=== PATIENT | male | born 1950 | race Caucasian/White ===

== ENCOUNTER → 2017-12-02 | Outpatient (CLI) | payer MEDICARE ==
--- NOTE | 2017-12-02 08:39 | US ---
EXAMINATION TYPE: US duplex aorta DATE OF EXAM: 12/02/2017 COMPARISON: NONE CLINICAL HISTORY: Z13.6 screening for abdominal aortic aneurysm. Screening for AAA, pt has no complai nts at this time EXAM MEASUREMENTS: Abdominal Aorta: Proximal: 2.6 x 2.8 cm Mid: 2.1 x 1.9 cm Distal: 1.9 x 1.9 cm Bifurcation: ENMA: 1.0 x 1.1 cm ASIA: 1.0 x 1.0 cm Proximal portion upper limits of normal without evidence of AAA IMPRESSION: No sonographic evidence of abdominal aortic aneurysm. The proximal abdominal aorta is upp er limits of normal measuring up to 2.8 cm (normal limits up to 3.0 cm).
== END ==
LOC: RADUSWWP 08:12
PROVIDERS: ATTEND Internal Medicine
DX: Z13.6 Encounter for screening for cardiovascular disorders (principal)
CPT/HCPCS: 93979

== ENCOUNTER → 2022-11-12 | Outpatient (CLI) | payer MEDICARE ==
--- NOTE | 2022-11-12 08:44 | CTL ---
EXAMINATION TYPE: CT Low Dose Lung DATE OF EXAM ORDERED: 11/12/2022 HISTORY: Personal tobacco use. Lung cancer screening CT DLP: 114.[address] CTDI: 3.81 mGy Automated exposure control for dose reduction was used. SCREENING VISIT: Initial COMPARISON: None TECHNIQUE: Low dose computed tomography scan was performed through the chest at 1 mm thick sections a nd reconstructed images in the coronal plane at [address] DIAGNOSTIC QUALITY: Satisfactory FINDINGS: LUNG NODULES: None. LUNGS: COPD: Severity: None Fibrosis: Severity: None Lymph nodes: None Other findings: None RIGHT PLEURAL SPACE: Effusion: None Calcification: None Thickening: None Pneumothorax: None LEFT PLEURAL SPACE: Effusion: None Calcification: None Thickening: None Pneumothorax: None HEART: Heart Size: Normal Coronary calcification: Moderate Pericardial effusion: None OTHER FINDINGS: Upper abdomen: Normal Bony thorax: Normal Supraclavicular region: Normal Other: Ascending thoracic aorta at the level the main pulmonary artery measures 4.1 cm. The main pul monary artery at the bifurcation measures 2.9 cm. IMPRESSION: 1. No suspicious changes to suggest primary or metastatic neoplasm. 2. Ascending thoracic aortic aneurysm. 3. Coronary artery calcification FOLLOW UP CT CHEST RECOMMENDATION: Low-dose CT chest [address] LUNG RAD: Lung-Rad 1 Negative
== END | disposition home or self-care (01) ==
LOC: RADCTMAIN 06:43
PROVIDERS: ATTEND Family Medicine
DX: Z12.2 Encounter for screening for malignant neoplasm of respiratory organs (principal); F17.210 Nicotine dependence, cigarettes, uncomplicated; I71.21 Aneurysm of the ascending aorta, without rupture; I25.10 Atherosclerotic heart disease of native coronary artery without angina pectoris
CPT/HCPCS: 71271

== ENCOUNTER 2023-02-21 02:13 | Emergency (ER) | payer MEDICARE ==
[2023-02-21 02:23] VITALS: RESP 18; TEMP 98.1
[2023-02-21] MEDS ORDERED: KETOROLAC 15 MG/ML 1 ML VIAL IVP STA (02:36)
[2023-02-21] MEDS ORDERED: SODIUM CHLORIDE 0.9% 1,000 ML IV STA (02:36)
--- NOTE | 2023-02-21 02:38 | ED ---
General Adult HPI - General Chief complaint: Abdominal Pain Stated complaint: ABD Pain Time Seen by Provider: 02/21/23 02:30 Source: patient Mode of arrival: ambulatory Limitations: no limitations - History of Present Illness Initial comments: Dictation was produced using [employer] dictation software. please excuse any grammatical, word or spelling errors. Chief Complaint: 72-year-old male with no history of nephrolithiasis presents to the ER for left-sided flank pain History of Present Illness: Since 72-year-old male he has known kidney stone history. Patient was supposed to have operative intervention to treat kidney stone however this surgery was pushed back due to need for cardiac clearance. The last 2-3 hours she's been having left-sided flank pain. States that he has pain to the left flank. States that severe. He has been having on and off kidney stone pain for the last several years. The ROS documented in this emergency department record has been reviewed and confirmed by me. Those systems with pertinent positive or negative responses have been documented in the HPI. All other systems are other negative and/or noncontributory. - Related Data Allergies Allergy/AdvReac Type Severity Reaction Status Date / Time No Known Allergies Allergy Verified 02/21/23 02:19 Review of Systems ROS Statement: Those systems with pertinent positive or pertinent negative responses have been documented in the HPI. ROS Other: All systems not noted in ROS Statement are negative. Past Medical History Additional Past Medical History / Comment(s): kidney stone. History of Any Multi-Drug Resistant Organisms: None Reported Additional Past Surgical History / Comment(s): carpal tunnel, Past Psychological History: No Psychological Hx Reported Smoking Status: Former smoker Past Alcohol Use History: None Reported Past Drug Use History: None Reported General Exam - General Exam Comments Initial Comments: PHYSICAL EXAM: General Impression: Alert and oriented x3, not in acute distress HEENT: Normocephalic atraumatic, extra-ocular movements intact, pupils equal and reactive to light bilaterally, mucous membranes moist. Cardiovascular: Heart regular rate and rhythm Chest: Able to complete full sentences, no retractions, no tachypnea Abdomen: abdomen soft, non-tender, non-distended, no organomegaly Musculoskeletal: Pulses present and equal in all extremities, no peripheral edema Motor: no focal deficits noted Neurological: CN II-XII grossly intact, no focal motor or sensory deficits noted Skin: Intact with no visualized rashes Psych: Normal affect and mood Limitations: no limitations Course Vital Signs 02/21/23 02/21/23 02:19 03:23 Temperature 98.1 F Pulse Rate 71 59 L Respiratory 18 18 Rate Blood Pressure 150/96 127/81 O2 Sat by Pulse 98 97 Oximetry Medical Decision Making - Medical Decision Making Was pt. sent in by a medical professional or institution (, PA, SOFTWARE INTERN, urgent care, hospital, or care home...) When possible be specific @ -No Did you speak to anyone other than the patient for history (EMS, parent, family, police, friend...)? What history was obtained from this source @ -No Did you review nursing and triage notes (agree or disagree)? Why? @ -I reviewed and agree with nursing and triage notes Were old charts reviewed (outside hosp., previous admission, EMS record, old EKG, old radiological studies, urgent care reports/EKG's, care home records)? Report findings @ -No old charts were reviewed Differential Diagnosis (chest pain, altered mental status, abdominal pain women, abdominal pain men, vaginal bleeding, musculoskeletal, weakness, fever, dyspnea, syncope, headache, dizziness, GI bleed, back pain, seizure, CVA, palpatations, mental health)? @ -Differential Abdominal Pain Men: Appendicitis, cholecystitis, diverticulosis, ischemic bowel, pancreatitis, hepatitis, UTI, gastroenteritis, AAA, incarcerated hernia, bowel obstruction, constipation, inflammatory bowel, hepatitis, peptic ulcer disease, splenic infarction, perforated viscus, testicular torsion, this is not meant to be an all-inclusive list EKG interpreted by me (3pts min.). @ -None done X-rays interpreted by me (1pt min.). @ -None done CT interpreted by me (1pt min.). @ -None done U/S interpreted by me (1pt. min.). @ -Left hydronephrosis What testing was considered but not performed or refused? (CT, X-rays, U/S, labs)? Why? @ -None What meds were considered but not given or refused? Why? @ -None Did you discuss the management of the patient with other professionals (professionals i.e. , PATRICIA, SOFTWARE INTERN, lab, RT, psych nurse, social economist, preventative maintenance technician, teacher, chief analytics officer, casework specialist)? Give summary @ -No Was smoking cessation discussed for >3mins.? @ -No Was critical care preformed (if so, how long)? @ -No Were there social determinants of health that impacted care today? How? (Homelessness, low income, unemployed, alcoholism, drug addiction, transportation, low edu. Level, literacy, decrease access to med. care, retirement, rehab)? @ -No Was there de-escalation of care discussed even if they declined (Discuss DNR or withdrawal of care, Hospice)? DNR status @ -No What co-morbidities impacted this encounter? (DM, HTN, Smoking, COPD, CAD, Cancer, CVA, ARF, Chemo, Hep., AIDS, mental health diagnosis, sleep apnea, morbi d obesity)? @ -None Was patient admitted / discharged? Hospital course, mention meds given and route, prescriptions, significant lab abnormalities, going to OR and other pertinent info. @ -72 y Old male presents with flank pain. Symptoms are classic for nephrolithiasis. Vital signs upon arrival are within acceptable limits. Laboratory evaluation within acceptable limits. Patient given analgesics and IV fluids. Reevaluated at the bedside at 5:08 AM with complete resolution of symptoms. Clinically patient's kidney stone had gone back to the kidney. Previous chart review shows that patient has a large kidney stone in the left urinary system. Patient be discharged advised follow up with urologist. Undiagnosed new problem with uncertain prognosis? @ -No Drug Therapy requiring intensive monitoring for toxicity (Heparin, Nitro, Insulin, Cardizem)? @ -No Were any procedures done? @ -No Diagnosis/symptom? Acute, or Chronic, or Acute on Chronic? Uncomplicated (without systemic symptoms) or Complicated (systemic symptoms)? @ -1. Symptomatic kidney stone Side effects of treatment? @ -No Exacerbation, Progression, or Severe Exacerbation? @ -No Poses a threat to life or bodily function? How? (Chest pain, USA, NC, pneumonia, PE, COPD, DKA, ARF, appy, cholecystitis, CVA, Diverticulitis, Homicidal, Suicidal, threat to staff... and all critical care pts) @ -No - Lab Data Result diagrams: 02/21/23 02:55 02/21/23 02:55 Lab Results 02/21/23 02/21/23 Range/Units 02:55 02:55 WBC 7.6 (3.8-10.6) k/uL RBC 5.48 (4.30-5.90) m/uL Hgb 16.4 (13.0-17.5) gm/dL Hct 49.5 (39.0-53.0) % MCV 90.3 (80.0-100.0) fL MCH 29.8 (25.0-35.0) pg MCHC 33.0 (31.0-37.0) g/dL RDW 13.1 (11.5-15.5) % Plt Count 184 (150-450) k/uL MPV 8.6 Neutrophils % 75 % Lymphocytes % 16 % Monocytes % 5 % Eosinophils % 2 % Basophils % 0 % Neutrophils # 5.7 (1.3-7.7) k/uL Lymphocytes # 1.2 (1.0-4.8) k/uL Monocytes # 0.4 (0-1.0) k/uL Eosinophils # 0.2 (0-0.7) k/uL Basophils # 0.0 (0-0.2) k/uL Sodium 138 (137-145) mmol/L Potassium 4.1 (3.5-5.1) mmol/L Chloride 107 (98-107) mmol/L Carbon Dioxide 21 L (22-30) mmol/L Anion Gap 10 mmol/L BUN 30 H (9-20) mg/dL Creatinine 1.14 (0.66-1.25) mg/dL Est GFR (CKD-EPI)AfAm 75 (>60 ml/min/1.73 sqM) Est GFR (CKD-EPI)NonAf 65 (>60 ml/min/1.73 sqM) Glucose 103 H (74-99) mg/dL Calcium 9.3 (8.4-10.2) mg/dL Disposition Clinical Impression: Kidney stone Disposition: HOME SELF-CARE Condition: Fair Instructions (If sedation given, give patient instructions): Kidney Stones (ED) Is patient prescribed a controlled substance at d/c from ED?: No Referrals: Ermias Barton MD [Primary Care Provider] - 1-2 days Time of Disposition: 05:09
[2023-02-21 03:14] LABS: Basophils % (A) 0 %; Eosinophils # (A) 0.2 k/uL (0-0.7); Eosinophils % (A) 2 %; HCT 49.5 % (39.0-53.0); HGB 16.4 gm/dL (13.0-17.5); Lymphocytes # (A) 1.2 k/uL (1.0-4.8); Lymphocytes % (A) 16 %; MCH 29.8 pg (25.0-35.0); MCV 90.3 fL (80.0-100.0); Mean Platelet Volume 8.6; Monocytes # (A) 0.4 k/uL (0-1.0); Monocytes % (A) 5 %; Neutrophils # (A) 5.7 k/uL (1.3-7.7); Neutrophils % (A) 75 %; Platelet Count 184 k/uL (150-450); RBC 5.48 m/uL (4.30-5.90); RDW 13.1 % (11.5-15.5); WBC 7.6 k/uL (3.8-10.6)
[2023-02-21 03:23] LABS: African American GFR (CKD) 75 (>60 ml/min/1.73 sqM); Anion Gap 10 mmol/L; Blood Urea Nitrogen 30 mg/dL (9-20); Calcium 9.3 mg/dL (8.4-10.2); Carbon Dioxide 21 mmol/L (22-30); Chloride 107 mmol/L (98-107); Glucose 103 mg/dL (74-99); Non-African American GFR(CKD) 65 (>60 ml/min/1.73 sqM); Potassium 4.1 mmol/L (3.5-5.1); Sodium 138 mmol/L (137-145)
[2023-02-21 04:30] VITALS: BP 127/81; PULSE 59
--- NOTE | 2023-02-21 06:13 | US ---
EXAM: US Retroperitoneal Complete, Renal CLINICAL HISTORY: flank pain TECHNIQUE: Real-time complete ultrasound of the retroperitoneum with image documentation. COMPARISON: CT urogram dated 12/10/2022. FINDINGS: Right kidney: Right kidney measures 10.7 x 5.2 x 4.5 cm. No stones. No hydronephrosis. Left kidney: Left kidney measures 10.4 x 5.7 x 6 cm. Mild/moderate left-sided hydronephrosis with a 1.2 cm stone noted at the left UPJ, as seen on prior study. 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 Both ureteral jets were not seen. IMPRESSION: 1. Mild/moderate left-sided hydronephrosis with a 1.2 cm stone noted at the left UPJ, as seen on prior study. 2. 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
== END 2023-02-21 05:33 | disposition home or self-care (01) ==
LOC: EC 02:13
DX: N13.2 Hydronephrosis with renal and ureteral calculous obstruction (principal); Z87.891 Personal history of nicotine dependence
CPT/HCPCS: 80048; 85025; 76770; 99284; 96374; 96361 ×2; J1885; 36415

== ENCOUNTER → 2023-03-14 | Outpatient (CLI) | payer MEDICARE ==
[2023-03-14 17:08] LABS: Basophils # (A) 0.07 X 10*3/uL (0.00-0.10); Basophils % (A) 1.5 %; Eosinophils # (A) 0.14 X 10*3/uL (0.04-0.35); Eosinophils % (A) 3.1 %; HCT 49.2 % (39.6-50.0); HGB 16.3 d/dL (13.0-17.0); Lymphocytes # (A) 1.38 X 10*3/uL (0.90-5.00); Lymphocytes % (A) 30.5 %; MCH 30.3 pg (27.0-32.0); MCHC 33.1 d/dL (32.0-37.0); MCV 91.4 FL (80.0-97.0); Monocytes # (A) 0.49 X 10*3/uL (0.20-1.00); Monocytes % (A) 10.8 %; NRBC Per 100 WBC 0 X 10*3/uL (0.00-0.01); Neutrophils # (A) 2.44 X 10*3/uL (1.80-7.70); Neutrophils % (A) 53.9 %; Platelet Count 208 X 10*3/uL (140-440); RBC 5.38 X 10*6/uL (4.40-5.60); RDW 12.9 % (11.5-14.5); WBC 4.53 X 10*3/uL (4.50-10.00)
[2023-03-14 17:10] LABS: Anion Gap 9.5 mmol/L (4.00-12.00); Blood Urea Nitrogen 29.6 mg/dL (9.0-27.0); Carbon Dioxide 24.5 mmol/L (21.6-31.8); Potassium 4.3 mmol/L (3.5-5.5)
== END | disposition home or self-care (01) ==
LOC: LABWHC1 08:23
PROVIDERS: ATTEND Internal Medicine Interventional Cardiology
DX: Z01.812 Encounter for preprocedural laboratory examination (principal); I25.10 Atherosclerotic heart disease of native coronary artery without angina pectoris
CPT/HCPCS: 36415; 80051; 82565; 84520; 85025

== ENCOUNTER 2023-04-04 07:38 | Day surgery (SDC) | payer MEDICARE ==
[2023-03-29 12:22] VITALS: BMI 27.3
[~2023-04-04 07:38] MED LIST: ALPRAZolam 0.25 MG TAB PO PRN; ALPRAZolam 0.5 MG TAB PO PRN; ASPIRIN 325 MG TAB PO ONE; ATORVASTATIN 80 MG TAB PO ONE; HEPARIN SODIUM,PORCINE (1 ML) 2,500 UNIT in SODIUM CHLORIDE 0.9% 250 ML IRRIGATION PRN; HEPARIN SODIUM,PORCINE 10,000 UNIT in SODIUM CHLORIDE 0.9% 1,000 ML IRRIGATION PRN; NITROGLYCERIN SL TABS 0.4 MG TAB SUBLINGUAL PRN; SODIUM CHLORIDE 0.9% 1,000 ML in EMPTY BAG 1 BAG IV SCH
[2023-04-04 08:15] VITALS: RESP 18; TEMP 97.9
[2023-04-04] MEDS ORDERED: HEPARIN SODIUM 1,000 UN/ML (10ML VL) ONE (08:52)
[2023-04-04] MEDS ORDERED: LIDOCAINE 1% INJ 10MG/ML (20 ML MDV) ONE (08:52)
[2023-04-04] MEDS ORDERED: VERAPAMIL 2.5 MG/ML 2 ML AMP ONE (08:52)
[2023-04-04] MEDS ORDERED: MIDAZOLAM 2 MG/2 ML VIAL IVP ONE (09:14)
[2023-04-04] MEDS ORDERED: LIDOCAINE 1% INJ 10MG/ML (5 ML VIAL-PF) SQ ONE (09:14)
[2023-04-04] MEDS ORDERED: VERAPAMIL SYRINGE (5 MG/10 ML) INTRAARTER ONE (09:15)
[2023-04-04] MEDS ORDERED: HEPARIN SODIUM 1,000 UN/ML (10ML VL) IV ONE (09:18)
[2023-04-04] MEDS ORDERED: IOPAMIDOL-370 100ML BTL INJ ONE (09:28)
[2023-04-04] MEDS ORDERED: RX INFO: IV CONTRAST WAS GIVEN 1 EACH MISC MISCELLANE PRN (09:30)
[2023-04-04] MEDS ORDERED: SODIUM CHLORIDE 0.9% 1,000 ML IV SCH (09:30)
--- NOTE | 2023-04-04 09:34 | P.PCN ---
Date of Procedure: 04/04/23 Operative Findings: CARDIAC CATHETERIZATION PERFORMING PHYSICIAN: Kunal Romano MD, RPVI PROCEDURE PERFORMED: 1. Selective right and left coronary angiogram 2. Left heart catheterization 3. Ultrasound-guided access of the right radial artery INDICATION: Shortness of breath this 72-year-old gentleman who underwent coronary CT showed critical disease involving the proximal to mid LAD COMPLICATION: None APPROACH: Right radial artery LEVEL OF SEDATION: Moderate with a sedation length of 15 minutes PROCEDURE DESCRIPTION: After obtaining an informed consent, the patient was brought to cardiac slab worker. Local anesthesia was performed using lidocaine subcutaneously. The right radial artery was cannulated using Seldinger technique, the guidewire passed easily, following that we advanced a 5-German sheath dilator assembly, the wire and dilator were removed and sheath was flushed. Following that, 2 mg of verapamil along with 5000 unit heparin were given. Selective right and left coronary angiogram using a 6-German JR4 and JL 3.5 catheters. Following that we did left heart catheterization using 6-German pigtail catheter. The procedure was completed there was no complication. SELECTIVE CORONARY ANGIOGRAM: The right coronary artery: Large-caliber vessel and a dominant vessel. The RCA has mild disease only. Distally bifurcates into PDA and PLV branches both appear to have mild disease only. Left main: Large caliber vessel. Calcified vessel. It has mild disease only. The left circumflex: Large caliber vessel nondominant vessel. The ostial LCx has mild disease only. It gives rises into an OM1 and OM 2 and both appeared to have mild disease only. The left anterior descending artery: Large-caliber vessel. The proximal to mid LAD by the bifurcation of a large diagonal branch has a lesion appeared to be in the range of 50% and the lesion is tubular. The heart is no high-grade stenosis identified. The distal LAD appears to be angiographically normal. The large diagonal branch appeared to have mild disease only HEMODYNAMICS: The LVEDP was 12 mmHg was no significant gradient across aortic valve CONCLUSION: 1. Calcified right and left coronary system 2. Intermediate disease involving the proximal to mid LAD with a tubular lesion by the bifurcation of the large diagonal branch POSTPROCEDURE MANAGEMENT: Consider medical treatment at this point Consider FFR of the LAD if the patient remains symptomatic in spite of maximize medical treatment
[2023-04-04 14:39] VITALS: BP 117/68; PULSE 58
== END 2023-04-04 13:35 | disposition home or self-care (01) ==
LOC: CATHCVL 07:38
PROVIDERS: ATTEND Internal Medicine Interventional Cardiology
DX: I25.10 Atherosclerotic heart disease of native coronary artery without angina pectoris (principal); E78.5 Hyperlipidemia, unspecified; F17.210 Nicotine dependence, cigarettes, uncomplicated; F17.200 Nicotine dependence, unspecified, uncomplicated
CPT/HCPCS: 93458; 76937; C1769; C1894; J2250; J2001; J1644; Q9967

== ENCOUNTER 2023-05-08 06:16 | Day surgery (SDC) | payer MEDICARE ==
[2023-05-02 09:11] VITALS: BMI 28.6
--- NOTE | 2023-05-07 11:32 | P.GSHP ---
History of Present Illness H&P Date: 05/07/23 72 yo male with a history of stones He has a 16 mm left upj stone as well as a larger stone in the llp calyx. He comes for a left pcnl Alternatives have been discussed. - Constitutional Constitutional: Denies chills, Denies fever - EENT Eyes: denies blurred vision, denies pain Ears, nose, mouth and throat: Denies headache, Denies sore throat - Cardiovascular Cardiovascular: Denies chest pain, Denies shortness of breath - Respiratory Respiratory: Denies cough, Denies 7 - Gastrointestinal Gastrointestinal: Denies abdominal pain, Denies diarrhea, Denies nausea, Denies vomiting - Genitourinary (Female) Genitourinary: Denies dysuria, Denies hematuria - Genitourinary (Male) Genitourinary: Denies dysuria, Denies hematuria - Musculoskeletal Musculoskeletal: Denies myalgias - Integumentary Integumentary: Denies pruritus, Denies rash - Neurological Neurological: Denies numbness, Denies weakness - Psychiatric Psychiatric: Denies anxiety, Denies depression - Endocrine Endocrine: Denies fatigue, Denies weight change Past Medical History Past Medical History: Coronary Artery Disease (CAD), COPD, Hyperlipidemia, Osteoarthritis (OA) Additional Past Medical History / Comment(s): kidney stone History of Any Multi-Drug Resistant Organisms: None Reported Past Surgical History: Heart Catheterization, Orthopedic Surgery Additional Past Surgical History / Comment(s): carpal tunnel, surgery for nerve in elbow Past Anesthesia/Blood Transfusion Reactions: No Reported Reaction Past Psychological History: No Psychological Hx Reported Smoking Status: Former smoker Past Alcohol Use History: None Reported Past Drug Use History: None Reported - Past Family History Mother Family Medical History: No Reported History Medications and Allergies Home Medications Medication Instructions Recorded Confirmed Type Naproxen Sodium [Aleve] 220 mg PO DIRECTED PRN 03/29/23 05/02/23 History Aspirin 81 mg PO DAILY 04/04/23 05/02/23 History Atorvastatin [Lipitor] 40 mg PO HS 05/02/23 05/02/23 History Allergies Allergy/AdvReac Type Severity Reaction Status Date / Time No Known Allergies Allergy Verified 05/02/23 08:54 Surgical - Exam - General well developed, well nourished, no distress - Eyes normal ocular movement, no icteric - ENT no hearing loss, no congestion - Neck no masses, trachea midline - Respiratory normal respiratory effort, clear to auscultation - Abdomen Abdomen: soft, non tender, no guarding, no rigid, no rebound - Integumentary no rash, no abnormal pigmentation - Neurologic no disoriented, no combative - Psychiatric oriented to time, oriented to person, oriented to place, speech is normal, memory intact Results - Imaging CT scan - abdomen: report reviewed, image reviewed CT scan - pelvis: report reviewed, image reviewed Assessment and Plan Assessment: Impression: Left renal stone, large Plan: left pcnl
[2023-05-08] MEDS ORDERED: HYDROmorphone 0.5 MG/0.5 ML SYRINGE IVP PRN (07:00)
[2023-05-08] MEDS: LACTATED RINGERS 1,000 ML IV SCH ×2 (07:06→07:48)
[2023-05-08] MEDS ORDERED: LIDOCAINE 1% (10MG/ML) FOR IV START SQ ONE (07:06)
[2023-05-08] MEDS: ONDANSETRON 4 MG/2 ML VIAL IVP ONE ×2 (07:09→10:43)
[2023-05-08] MEDS: DEXAMETHASONE SOD PHOSPHATE 4 MG/ML 1 ML VIAL IV ONE ×2 (07:09→10:43)
[2023-05-08] MEDS ORDERED: SUCCINYLCHOLINE CHLORIDE 200 MG/10 ML VIAL IV ONE (07:45)
[2023-05-08] MEDS ORDERED: PROPOFOL 10 MG/ML 20 ML VIAL IV ONE (07:45)
[2023-05-08] MEDS ORDERED: GLYCOPYRROLATE 0.2 MG/ML 2 ML VIAL ONE (07:45)
[2023-05-08] MEDS ORDERED: MIDAZOLAM 2 MG/2 ML VIAL ONE (07:45)
[2023-05-08] MEDS ORDERED: NEOSTIGMINE 1 MG/ML 10 ML VIAL ONE (07:45)
[2023-05-08] MEDS ORDERED: fentaNYL (PF) 50 MCG/ML 2 ML AMP ONE (07:45)
[2023-05-08] MEDS ORDERED: LIDOCAINE 1% INJ 10MG/ML (20 ML MDV) ONE (07:45)
[2023-05-08] MEDS ORDERED: ROCURONIUM 10 MG/ML (5 ML VIAL) IV ONE (07:45)
[2023-05-08] MEDS ORDERED: IOPAMIDOL-370 100ML BTL MISCELLANE ONE (08:38)
[2023-05-08] MEDS ORDERED: LACTATED RINGERS 1,000 ML IV ONE (09:00)
[2023-05-08] MEDS ORDERED: MAG HYDROX/AL HYDROX/SIMETH 30 ML CUP PO PRN (09:22)
[2023-05-08] MEDS ORDERED: ACETAMINOPHEN TAB 325 MG TAB PO PRN (09:22)
[2023-05-08] MEDS ORDERED: ONDANSETRON 4 MG/2 ML VIAL IVP PRN (09:22)
[2023-05-08] MEDS ORDERED: NALOXONE 0.4 MG/ML 1 ML VIAL IV PRN (09:24)
[2023-05-08] MEDS ORDERED: HYDROmorphone PCA 10 MG/50 ML BAG IV PRN (09:24)
--- NOTE | 2023-05-08 09:29 | P.OP ---
Date of Procedure: 05/08/23 Preoperative Diagnosis: Left renal calculi large Postoperative Diagnosis: Same Procedure(s) Performed: Cystoscopy, placement of occluding balloon catheter left, percutaneous nephrostomy (Dr. Enciso), percutaneous nephrostolithotomy at ultrasound, placement of 10 J nephrostomy left Anesthesia: TALYAA Surgeon: Howard Enciso Estimated Blood Loss (ml): 50 Pathology: other (Stone) Condition: stable Disposition: PACU Indications for Procedure: The patient is 72. He has a 16 mm UPJ and another 1 cm of stone on the left lower pole calyx. He comes for left percutaneous nephrostolithotomy. Risks and complications have been discussed Description of Procedure: Patient brought to the operating suite. Given a general anesthetic. He's placed in a frog position on the transport gurney. Cystoscopy with a Foroblique lens and 21-Hungarian sheath identifies a normal urethra. The prostatic urethra was mildly obstructed. The left ureteral orifice is identified and intubated with a 5-Hungarian occluding balloon catheter. The cystoscope was removed. His secured to a 16-Hungarian Gamble. The patient is placed in prone position with care to airways and extremities. Sterile prep is administered. I performed left percutaneous access and this will be dictated separately. I then dilate the access and place a 30-Hungarian sheath into the middle pole calyx that I access. The stones have dropped into the UPJ. I then pass a semirigid scope into the collecting system. The 3 stones that were in the left lower pole calyx are identified grasp and removed through the working sheath. The left UPJ stone is identified and I have to use ultrasound to break it up into smaller pieces to be removed. The larger fragments are grasped. I then pass the flexible nephroscope throughout the system and see no remaining stones. There are no remaining stones on the fluoroscopic. A 10-Hungarian J nephrostomy tube was placed in the left renal pelvis over the working wire. Secured to the skin. The patient is awake and returned recovery room good condition. Blood loss was approximately 50 mL.
--- NOTE | 2023-05-08 09:32 | P.PCN ---
Date of Procedure: 05/08/23 Preoperative Diagnosis: Left renal stones Postoperative Diagnosis: Same Procedure(s) Performed: Percutaneous access Anesthesia: GETA Surgeon: Howard Enciso Description of Procedure: The patient has had a previous ureteral catheter placed he is now in prone position with a sterile prep and drape. Fluid and air are injected to the left ureteral catheter to outline the collecting system. The stones have dropped into the UPJ. With a Chiba needle a middle pole calyx is identified and intubated. Water and air come out of this left middle pole calyx. I then pass a cope wire through the Chiba needle down into the UPJ. I removed the Chiba needle and over the wire is passed dilating catheters. I then pass through the 3-Chinese dilating catheter and 035 Lubriglide wire down into the proximal ureter. I advance a kumpf cath over the 035 wire into the proximal ureter. I then remove the Lubriglide wire and pass an 035 Super Stiff wire into the ureter. I then pass the 8/10 dilating, exchange catheters in the left proximal ureter. I removed the inner catheter and prepped then pass another 035 wire down the ureter. Impression successful left renal access for percutaneous nephrostolithotomy
--- NOTE | 2023-05-08 09:39 | FL ---
EXAMINATION TYPE: FL Perc Nephrostomy New Access DATE OF EXAM: 05/08/2023 COMPARISON: NONE HISTORY: Fluoroscopy time TECHNIQUE: Fluoroscopy. FINDINGS: Fluoroscopic guidance was provided during procedure of 28.597 DAp IMPRESSION: As Above.
[2023-05-08] MEDS: DEXTROSE 5%-0.45% NACL 1,000 ML IV SCH ×2 (10:51→20:44)
[2023-05-08 11:09] VITALS: RESP 18
[2023-05-08] MEDS ORDERED: ATORVASTATIN 40 MG TAB PO SCH (21:00)
[2023-05-09] MEDS: DEXTROSE 5%-0.45% NACL 1,000 ML IV SCH (05:53)
[2023-05-09] MEDS: LACTATED RINGERS 1,000 ML IV SCH (05:55)
--- NOTE | 2023-05-09 07:42 | P.DS ---
Providers Attending physician: Howard Enciso Primary care physician: [place] Hospital Course: Patient is admitted to the hospital 05/08/23 for a left percutaneous nephrostolithotomy. He underwent this without difficulty. His urine cleared overnight. His pain is under control. I will remove his catheter and have the patient ambulate. If he does well be discharged home later today with the nephrostomy tube. He will be removed in the office on 05/23/23. He'll take Tylenol or Motrin for pain. His condition is good. Postoperative instructions been given. Patient Condition at Discharge: Good Plan - Discharge Summary Discharge Rx Participant: No New Discharge Prescriptions: No Action Naproxen Sodium [Aleve] 220 mg PO DIRECTED PRN PRN Reason: Pain Aspirin 81 mg PO DAILY Atorvastatin [Lipitor] 40 mg PO HS Discharge Medication List Naproxen Sodium [Aleve] 220 mg PO DIRECTED PRN 03/29/23 [History] Aspirin 81 mg PO DAILY 04/04/23 [History] Atorvastatin [Lipitor] 40 mg PO HS 05/02/23 [History] Follow up Appointment(s)/Referral(s): Howard Enciso MD [STAFF PHYSICIAN] - 05/13/23 (With nephrostomy tube please i nstruct) Discharge Disposition: HOME SELF-CARE
[2023-05-09 07:51] VITALS: BP 110/74; PULSE 60; TEMP 98
== END 2023-05-09 13:51 | disposition home or self-care (01) ==
LOC: OR 06:16 → 6NMEDSUR 09:17 → OR 05-09 13:51
PROVIDERS: ATTEND Urology
DX: N20.2 Calculus of kidney with calculus of ureter (principal); M19.90 Unspecified osteoarthritis, unspecified site; J44.9 Chronic obstructive pulmonary disease, unspecified; I25.10 Atherosclerotic heart disease of native coronary artery without angina pectoris; E78.5 Hyperlipidemia, unspecified; Z79.82 Long term (current) use of aspirin; Z87.442 Personal history of urinary calculi; Z87.891 Personal history of nicotine dependence
CPT/HCPCS: 82365; 50432; 50080; C1769 ×4; C2628; C1894; C1729; J1100; J0690; J2405; Q9967; J1170

== ENCOUNTER 2023-08-28 09:09 | Day surgery (SDC) | payer MEDICARE ==
[2023-08-27 08:42] VITALS: BMI 29.8
[~2023-08-28 09:09] MED LIST changes: -ALPRAZolam 0.25 MG TAB PO PRN; -ALPRAZolam 0.5 MG TAB PO PRN; -ASPIRIN 325 MG TAB PO ONE; -ATORVASTATIN 80 MG TAB PO ONE; -HEPARIN SODIUM,PORCINE (1 ML) 2,500 UNIT in SODIUM CHLORIDE 0.9% 250 ML IRRIGATION PRN; -HEPARIN SODIUM,PORCINE 10,000 UNIT in SODIUM CHLORIDE 0.9% 1,000 ML IRRIGATION PRN; +HYDROmorphone 0.5 MG/0.5 ML SYRINGE IVP PRN; +LACTATED RINGERS 1,000 ML IV SCH; -NITROGLYCERIN SL TABS 0.4 MG TAB SUBLINGUAL PRN; -SODIUM CHLORIDE 0.9% 1,000 ML in EMPTY BAG 1 BAG IV SCH
[2023-08-28 09:56] VITALS: TEMP 97.7
[2023-08-28] MEDS ORDERED: LIDOCAINE 1% INJ 10MG/ML (20 ML MDV) ONE (10:30)
[2023-08-28] MEDS ORDERED: PROPOFOL 10 MG/ML 20 ML VIAL IV ONE (10:30)
--- NOTE | 2023-08-28 10:54 | P.PCN ---
Date of Procedure: 08/28/23 Procedure(s) Performed: BRIEF HISTORY: Patient is a 73-year-old pleasant male scheduled for an elective colonoscopy as a part of screening for colon cancer/positive cologuard. PROCEDURE PERFORMED: Colonoscopy with snare polypectomy. PREOPERATIVE DIAGNOSIS: Screening for colon cancer/positive cologuard.. IV sedation per Anesthesia. PROCEDURE: After informed consent was obtained, the patient, was brought into the endoscopy unit. IV sedation was administered by Anesthesia under continuous monitoring. Digital rectal examination was normal. Initially the Olympus CF-160 flexible video colonoscope was then inserted in the rectum, gradually advanced into the cecum without any difficulty. Careful examination was performed as the scope was gradually being withdrawn. Ileocecal valve and the appendiceal orifice were visualized and appeared normal. Prep was excellent. Mucosa of the cecum, ascending colon, transverse colon, descending colon appeared normal. The cecum and colon there was a 5 mm sessile polyp removed by cold snare polypectomy. Scattered diffuse diverticulosis. Rest of the, sigmoid colon, and rectum appeared normal. Retroflexion was performed in the rectum and no lesions were seen. The patient tolerated the procedure well. IMPRESSION: 5 mm distal sigmoid colon polyp status post snare polypectomy Scattered diffuse diverticulosis RECOMMENDATIONS: Findings of this examination were discussed with the patient as well as his family. He was advised to follow with the biopsy results and if the biopsy results adenoma he can have a repeat colonoscopy in 5 years..
[2023-08-28 11:36] VITALS: BP 130/81; PULSE 78; RESP 14
== END 2023-08-28 11:37 | disposition home or self-care (01) ==
LOC: ORWHC2ENDO 09:09
PROVIDERS: ATTEND Internal Medicine Gastroenterology
DX: K57.30 Diverticulosis of large intestine without perforation or abscess without bleeding (principal); Z79.899 Other long term (current) drug therapy
CPT/HCPCS: 88305; 45385; J2001; J2704

== ENCOUNTER → 2023-11-14 | Outpatient (CLI) | payer MEDICARE ==
--- NOTE | 2023-11-14 07:40 | CTL ---
EXAMINATION TYPE: CT Low Dose Lung DATE OF EXAM ORDERED: 11/14/2023 HISTORY: . Low Dose CT Lung Screening CT DLP: [address] CTDI: 2.33 mGy IV CONTRAST USED: None. SCREENING VISIT: Second COMPARISON: 11/12/2022 TECHNIQUE: Low dose computed tomography scan was performed through the chest at 1 millimeter thick se ctions and reconstructed images in the coronal plane at [address] DIAGNOSTIC QUALITY: Satisfactory FINDINGS: LUNG NODULES: Not presentLeft lung: no nodules identified.Right lung: no nodules identified. LUNGS: COPD: Severity: Mild Fibrosis: Severity:None Lymph nodes: None Other findings: None RIGHT PLEURAL SPACE: Effusion: None Calcification: None Thickening: None Pneumothorax: None LEFT PLEURAL SPACE: Effusion: None Calcification: None Thickening: None Pneumothorax: None HEART: Heart Size: Mildly enlarged Coronary calcification: At least moderate calcifications Pericardial effusion: None OTHER FINDINGS: Upper abdomen: No significant abnormality Bony thorax: Degenerative changes Supraclavicular region: No significant abnormalityOther: No significant abnormalityI IMPRESSION: No pulmonary nodularity seen greater than 5 mm. Moderate coronary artery calcifications. FOLLOW UP CT CHEST RECOMMENDATION: Follow-up screening in one year CT LUNG RAD: LUNG RAD CATEGORY 1 negative
== END | disposition home or self-care (01) ==
LOC: RADCTMAIN 06:51
PROVIDERS: ATTEND Family Medicine
DX: Z12.2 Encounter for screening for malignant neoplasm of respiratory organs (principal); Z87.891 Personal history of nicotine dependence
CPT/HCPCS: 71271

== ENCOUNTER → 2023-12-25 | Outpatient (CLI) | payer MEDICARE ==
[2023-12-25 10:44] LABS: Basophils # (A) 0.06 X 10*3/uL (0.00-0.10); Basophils % (A) 1.3 %; Eosinophils # (A) 0.12 X 10*3/uL (0.04-0.35); Eosinophils % (A) 2.5 %; HCT 48.5 % (39.6-50.0); HGB 15.7 g/dL (13.0-17.0); Lymphocytes # (A) 1.63 X 10*3/uL (0.90-5.00); Lymphocytes % (A) 34.5 %; MCH 29.9 pg (27.0-32.0); MCHC 32.4 g/dL (32.0-37.0); MCV 92.4 FL (80.0-97.0); Mean Platelet Volume 10.3 FL (9.5-12.2); Monocytes # (A) 0.52 X 10*3/uL (0.20-1.00); NRBC Per 100 WBC 0 X 10*3/uL (0.00-0.01); Neutrophils # (A) 2.38 X 10*3/uL (1.80-7.70); Neutrophils % (A) 50.5 %; Platelet Count 220 X 10*3/uL (140-440); RBC 5.25 X 10*6/uL (4.40-5.60); RDW 13.4 % (11.5-14.5); WBC 4.72 X 10*3/uL (4.50-10.00)
[2023-12-25 15:04] LABS: BUN/Creat Ratio 18.82 Ratio (12.00-20.00); Blood Urea Nitrogen 20.7 mg/dL (9.0-27.0); Calcium 9.7 mg/dL (8.7-10.3); Chloride 108 mmol/L (96-109); Glucose 107 mg/dL (70-110); Potassium 4.7 mmol/L (3.5-5.5); Sodium 141 mmol/L (135-145)
[2023-12-25 15:26] LABS: Appearance,Urine Clear (Clear); Bilirubin,Urine Negative (Negative); Blood,Urine Negative (Negative); Color,Urine Yellow (Yellow); Ketones,Urine Negative (Negative); Nitrite,Urine Negative (Negative); PH, Urine 6.5; Specific Gravity,Urine 1.013 (1.001-1.030); Urobilinogen,Urine 0.2 E.U./DL
[2023-12-25 15:33] LABS: Bacteria,Urine None Seen (None Seen)
== END | disposition home or self-care (01) ==
LOC: LABPAT 08:02
PROVIDERS: ATTEND Urology
DX: Z01.812 Encounter for preprocedural laboratory examination (principal); C67.9 Malignant neoplasm of bladder, unspecified; R31.0 Gross hematuria
CPT/HCPCS: 80048; 81001; 85025; 87086

== ENCOUNTER 2024-01-01 08:04 | Day surgery (SDC) | payer MEDICARE ==
--- NOTE | 2023-12-30 18:28 | P.GSHP ---
History of Present Illness H&P Date: 12/30/23 73 yo male with a history of stones. The patient was evaluated and treated for a large stone with a pcnl. During this evaluation he was noted to have a very inflammed bladder. Theua was negative but his cytoogy was positive for probable high grade malignancy. He was then biopsied for cis. He was placed on bcg. the erythema was devcreased but the cytology remained positive. He comes for repeat biopsy, retrograde pyelograms. He is a smoker but has quit - Constitutional Constitutional: Denies chills, Denies fever - EENT Eyes: denies blurred vision, denies pain Ears, nose, mouth and throat: Denies headache, Denies sore throat - Cardiovascular Cardiovascular: Denies chest pain, Denies shortness of breath - Respiratory Respiratory: Denies cough, Denies 7 - Gastrointestinal Gastrointestinal: Denies abdominal pain, Denies diarrhea, Denies nausea, Denies vomiting - Genitourinary (Female) Genitourinary: Denies dysuria, Denies hematuria - Genitourinary (Male) Genitourinary: Denies dysuria, Denies hematuria - Musculoskeletal Musculoskeletal: Denies myalgias - Integumentary Integumentary: Denies pruritus, Denies rash - Neurological Neurological: Denies numbness, Denies weakness - Psychiatric Psychiatric: Denies anxiety, Denies depression - Endocrine Endocrine: Denies fatigue, Denies weight change Past Medical History Past Medical History: Coronary Artery Disease (CAD), Hyperlipidemia, Osteoarthritis (OA), Prostate Disorder Additional Past Medical History / Comment(s): kidney stone, BPH, bladder cancer - treatments finished in History of Any Multi-Drug Resistant Organisms: None Reported Past Surgical History: Heart Catheterization Additional Past Surgical History / Comment(s): Lt. CTR, Rt. elbow surgery, nephrostomy 2022 Past Anesthesia/Blood Transfusion Reactions: No Reported Reaction Additional Past Anesthesia/Blood Transfusion Reaction / Comment(s): no blood transfusion Smoking Status: Former smoker Medications and Allergies Home Medications Medication Instructions Recorded Confirmed Type Aspirin 81 mg PO DAILY 04/04/23 12/27/23 History Atorvastatin [Lipitor] 40 mg PO HS 05/02/23 12/27/23 History Ciprofloxacin HCl [Cipro] 500 mg PO BID 08/27/23 12/27/23 History Allergies Allergy/AdvReac Type Severity Reaction Status Date / Time No Known Allergies Allergy Verified 12/27/23 12:54 Surgical - Exam - General well developed, well nourished, no distress - Eyes normal ocular movement, no icteric - ENT no hearing loss, no congestion - Neck no masses, trachea midline - Respiratory normal respiratory effort, clear to auscultation - Abdomen Abdomen: soft, non tender, no guarding, no rigid, no rebound - Integumentary no rash, no abnormal pigmentation - Neurologic no disoriented, no combative - Psychiatric oriented to time, oriented to person, oriented to place, speech is normal, me yolie intact Assessment and Plan Assessment: Impression: cis of bladder despite bcg immunotherapy Plan: cysto, bladder biopsy and retrograde pyelograms.
[~2024-01-01 08:04] MED LIST changes: -LACTATED RINGERS 1,000 ML IV SCH; +LIDOCAINE 1% (10MG/ML) FOR IV START INTRADERMA PRN; +METOCLOPRAMIDE 5 MG/ML 2 ML VIAL IVP PRN; +fentaNYL (PF) 50 MCG/ML 2 ML AMP IV PRN
[2024-01-01] MEDS: LACTATED RINGERS 1,000 ML IV SCH (08:44)
[2024-01-01] MEDS: IV FLUID CONTINUATION 1,000 ML IV ONE (08:45)
[2024-01-01] MEDS: DEXAMETHASONE SOD PHOSPHATE 4 MG/ML 1 ML VIAL IV ONE (08:45)
[2024-01-01] MEDS: ONDANSETRON 4 MG/2 ML VIAL IVP ONE (08:45)
[2024-01-01 08:57] VITALS: TEMP 97
[2024-01-01] MEDS ORDERED: MIDAZOLAM 2 MG/2 ML VIAL ONE (09:16)
[2024-01-01] MEDS ORDERED: PROPOFOL 10 MG/ML 20 ML VIAL IV ONE (09:16)
[2024-01-01] MEDS ORDERED: SUCCINYLCHOLINE CHLORIDE 200 MG/10 ML VIAL IV ONE (09:16)
[2024-01-01] MEDS ORDERED: fentaNYL (PF) 50 MCG/ML 2 ML AMP ONE (09:16)
[2024-01-01] MEDS ORDERED: HYDROmorphone (PF) 1 MG/ML ONE (09:16)
[2024-01-01] MEDS ORDERED: LIDOCAINE 1% INJ 10MG/ML (20 ML MDV) ONE (09:16)
[2024-01-01] MEDS: AMPICILLIN 1,000 MG in SODIUM CHLORIDE 0.9% 50 ML IVPB PRN (09:20)
[2024-01-01] MEDS: GENTAMICIN 120 MG in SODIUM CHLORIDE 0.9% 100 ML IVPB PRN (09:30)
[2024-01-01] MEDS: IOHEXOL 350 MG/ML 100 ML in EMPTY BAG 1 BAG IRRIGATION ONE (09:47)
--- NOTE | 2024-01-01 10:24 | P.OP ---
Date of Procedure: 01/01/24 Preoperative Diagnosis: carcinoma in situ of the bladder, status post BCG intravesical therapy Postoperative Diagnosis: same Procedure(s) Performed: cystoscopy, bilateral retrograde pyelograms, bladder biopsy and prostate urothelial biopsy Anesthesia: ETIENNE Surgeon: Howard Enciso Estimated Blood Loss (ml): 25 Pathology: other (bladder and prostate urothelial biopsies) Condition: stable Disposition: PACU Indications for Procedure: patient is 73. He has a history of carcinoma in situ of the bladder identify coincidentally during kidney stone evaluation. Is a smoker. He was biopsied with carcinoma in situ and treated with intravesical BCG. His symptoms have abated somewhat. Follow-up cystoscopy still showed some persistent erythema. Whether this is BCG cystitis or carcinoma in situ is indeterminate. His cytology remain positive. He comes for cystoscopy bilateral retrograde pyelograms bladder and prostate urothelial biopsies Description of Procedure: patient brought to the operating suite. Given a general anesthetic. Placed lithotomy position with a sterile prep and drape. Cystoscopy a Foroblique lens and 22-Mohawk sheath identifies a normal anterior urethra. The prostate shows lateral lobe obstruction without significant erythema at the bladder neck at 6:00 there is some erythema. The bladder jean baptiste severely trabeculated and does not empty due to chronic outlet obstruction. There is patchy erythema along the floor and trigone. Within a cone-tipped catheter a left retrograde pyelogram performed. The ureters of normal course and caliber without filling defect. it drains nicely. I do the same on the right side and it is also normal. With the cup biopsy multiple bladder urothelial biopsies are obtained of erythematous areas. They have then cauterized. I then biopsy of the prostate urothelium. It is also cauterized. At the end of the procedure the patient's awake and returned recovery room good condition Impression normal retrograde pyelograms. Rule out urothelial carcinoma the bladder or prostate.
--- NOTE | 2024-01-01 11:19 | FL ---
EXAMINATION TYPE: FL urography retrograde DATE OF EXAM: 01/01/2024 FLUOROSCOPY Retrograde urography, history of bladder cancer, DAP 6.9307 Gycm2; 48.1 seconds fluoro. 9 images subm itted.
[2024-01-01 12:39] VITALS: BP 124/78; PULSE 62; RESP 18
== END 2024-01-01 12:47 | disposition home or self-care (01) ==
LOC: OR 08:04
PROVIDERS: ATTEND Urology
DX: D09.0 Carcinoma in situ of bladder (principal); E78.5 Hyperlipidemia, unspecified; I25.10 Atherosclerotic heart disease of native coronary artery without angina pectoris; M19.90 Unspecified osteoarthritis, unspecified site; N40.0 Benign prostatic hyperplasia without lower urinary tract symptoms; Z87.442 Personal history of urinary calculi; Z87.891 Personal history of nicotine dependence; Z79.82 Long term (current) use of aspirin; Z79.899 Other long term (current) drug therapy; Z85.51 Personal history of malignant neoplasm of bladder
CPT/HCPCS: 88305; 74420; 52204; C1758; J2250; J0330; J1100; J2405; J2001; J3010; J1580; J0290; J1170; J2704; Q9967

== ENCOUNTER 2024-01-04 14:21 | Emergency (ER) | payer MEDICARE ==
[2024-01-04 14:59] VITALS: TEMP 98.5
--- NOTE | 2024-01-04 15:03 | ED ---
Recheck HPI - General Chief Complaint: Recheck/Abnormal Lab/Rx Stated Complaint: Blood in urine Time Seen by Provider: 01/04/24 15:02 Source: patient, RN notes reviewed Mode of arrival: ambulatory Limitations: no limitations - History of Present Illness Initial Comments: 73-year-old male presented to the ER with a chief complaint of hematuria. Patient underwent a cystoscopy with biopsy by Dr. Enciso on 01-01-2024. Patient reports last night he noted blood in his urine with clots. He does report he felt a little dizzy last night when this occurred. He denies any chest pain, shortness of breath, fevers, chills, abdominal pain, difficulty urinating. - Related Data Home Medications Medication Instructions Recorded Confirmed Aspirin 81 mg PO DAILY 04/04/23 01/01/24 Atorvastatin [Lipitor] 40 mg PO HS 05/02/23 01/01/24 Ciprofloxacin HCl [Cipro] 500 mg PO BID 08/27/23 01/01/24 Allergies Allergy/AdvReac Type Severity Reaction Status Date / Time No Known Allergies Allergy Verified 01/04/24 14:27 Review of Systems ROS Statement: Those systems with pertinent positive or pertinent negative responses have been documented in the HPI. ROS Other: All systems not noted in ROS Statement are negative. Past Medical History Past Medical History: Coronary Artery Disease (CAD) Additional Past Medical History / Comment(s): kidney stone. History of Any Multi-Drug Resistant Organisms: None Reported Additional Past Surgical History / Comment(s): carpal tunnel, cysto Past Anesthesia/Blood Transfusion Reactions: No Reported Reaction Additional Past Anesthesia/Blood Transfusion Reaction / Comment(s): no blood transfusion Past Psychological History: No Psychological Hx Reported Smoking Status: Former smoker Past Alcohol Use History: None Reported Past Drug Use History: None Reported General Exam Limitations: no limitations General appearance: alert, in no apparent distress Respiratory exam: Present: normal lung sounds bilaterally. Absent: respiratory distress, wheezes, rales, rhonchi, stridor Cardiovascular Exam: Present: regular rate, normal rhythm, normal heart sounds. Absent: systolic murmur, diastolic murmur, rubs, gallop, clicks GI/Abdominal exam: Present: soft, normal bowel sounds. Absent: distended, tenderness, guarding, rebound, rigid Neurological exam: Present: alert, oriented X3, CN II-XII intact Skin exam: Present: warm, dry, intact, normal color. Absent: rash Course Vital Signs 01/04/24 14:24 Temperature 98.5 F Pulse Rate 74 Respiratory 20 Rate Blood Pressure 132/81 O2 Sat by Pulse 98 Oximetry Medical Decision Making - Medical Decision Making Was pt. sent in by a medical professional or institution (, PA, [employer], urgent care, hospital, or long-term...) When possible be specific @ -No Did you speak to anyone other than the patient for history (EMS, parent, family, police, friend...)? What history was obtained from this source @ -No Did you review nursing and triage notes (agree or disagree)? Why? @ -I reviewed and agree with nursing and triage notes Were old charts reviewed (outside hosp., previous admission, EMS record, old EKG, old radiological studies, urgent care reports/EKG's, long-term records)? Report findings @ -No old charts were reviewed Differential Diagnosis (chest pain, altered mental status, abdominal pain women, abdominal pain men, vaginal bleeding, weakness, fever, dyspnea, syncope, headache, dizziness, GI bleed, back pain, seizure, CVA, palpatations, mental health, musculoskeletal)? @ -Differential Abdominal Pain Men: Appendicitis, cholecystitis, diverticulosis, ischemic bowel, pancreatitis, hepatitis, UTI, gastroenteritis, AAA, incarcerated hernia, bowel obstruction, constipation, inflammatory bowel, hepatitis, peptic ulcer disease, splenic infarction, perforated viscus, testicular torsion, this is not meant to be an all-inclusive list EKG interpreted by me (3pts min.). @ -None X-rays interpreted by me (1pt min.). @ -None done CT interpreted by me (1pt min.). @ -None done U/S interpreted by me (1pt. min.). @ -None done What testing was considered but not performed or refused? (CT, X-rays, U/S, labs)? Why? @ -None What meds were considered but not given or refused? Why? @ -None Did you discuss the management of the patient with other professionals (professionals i.e. , PATRICIA, [employer], lab, RT, psych nurse, social problems specialist, document improvement specialist, teacher, special service officer, caser)? Give summary @ -No Was smoking cessation discussed for >3mins.? @ -No Was critical care preformed (if so, how long)? @ -No Were there social determinants of health that impacted care today? How? (Homelessness, low income, unemployed, alcoholism, drug addiction, transportation, low edu. Level, literacy, decrease access to med. care, prison, rehab)? @ -No Was there de-escalation of care discussed even if they declined (Discuss DNR or withdrawal of care, Hospice)? DNR status @ -No What co-morbidities impacted this encounter? (DM, HTN, Smoking, COPD, CAD, Cancer, CVA, ARF, Chemo, Hep., AIDS, mental health diagnosis, sleep apnea, morbid obesity)? @ -None Was patient admitted / discharged? Hospital course, mention meds given and route, prescriptions, significant lab abnormalities, going to OR and other pertinent info. @ -Discharge. 73-year-old male presented to the ER with a chief complaint of hematuria. History and physical exam completed. Vitals stable. Patient is 4 days status post cystoscopy by Dr. Enciso. Patient in no signs of acute distress and nontoxic-appearing. No focal abdominal tenderness, with normal bowel sounds. Laboratory studies obtained significant for stable hemoglobin of 14.2. Otherwise unremarkable. Bladder scan 380cc. Upon reevaluation, patient resting comfortably in exam room in no signs of acute distress. Patient extremely eager for discharge. Results discussed with patient, all questions answered. I recommended Gamble catheter placement for urinary retention, patient refused. Patient states since this is a chronic issue he would not like a Gamble catheter. Patient displayed intact medical decision making capabilities. He states he can follow-up with Dr. Enciso on Saturday as scheduled. Strict return parameters discussed. Patient discharged in stable condition. Patient verbally expressed understanding and agreement with care plan. Case discussed with ED attending, Dr. Mojica Undiagnosed new problem with uncertain prognosis? @ -No Drug Therapy requiring intensive monitoring for toxicity (Heparin, Nitro, Insulin, Cardizem)? @ -No Were any procedures done? @ -No Diagnosis/symptom? @ -Hematuria/urinary retention Acute, or Chronic, or Acute on Chronic? @ -Acute Uncomplicated (without systemic symptoms) or Complicated (systemic symptoms)? @ -Uncomplicated Side effects of treatment? @ -No Exacerbation, Progression, or Severe Exacerbation? @ -No Poses a threat to life or bodily function? How? (Chest pain, USA, SD, pneumonia, PE, COPD, DKA, ARF, appy, cholecystitis, CVA, Diverticulitis, Homicidal, Suicidal, threat to staff... and all critical care pts) @ -Low likelihood - Lab Data Result diagrams: 01/04/24 15:25 01/04/24 15:25 Lab Results 01/04/24 01/04/24 Range/Units 15:25 15:25 WBC 5.4 (3.8-10.6) k/uL RBC 4.70 (4.30-5.90) m/uL Hgb 14.2 (13.0-17.5) gm/dL Hct 43.6 (39.0-53.0) % MCV 92.7 (80.0-100.0) fL MCH 30.3 (25.0-35.0) pg MCHC 32.7 (31.0-37.0) g/dL RDW 13.2 (11.5-15.5) % Plt Count 197 (150-450) k/uL MPV 7.9 Neutrophils % 56 % Lymphocytes % 29 % Monocytes % 9 % Eosinophils % 3 % Basophils % 1 % Neutrophils # 3.1 (1.3-7.7) k/uL Lymphocytes # 1.6 (1.0-4.8) k/uL Monocytes # 0.5 (0-1.0) k/uL Eosinophils # 0.2 (0-0.7) k/uL Basophils # 0.1 (0-0.2) k/uL Sodium 137 (137-145) mmol/L Potassium 4.2 (3.5-5.1) mmol/L Chloride 107 (98-107) mmol/L Carbon Dioxide 24 (22-30) mmol/L Anion Gap 6 mmol/L BUN 27 H (9-20) mg/dL Creatinine 0.97 (0.66-1.25) mg/dL Est GFR (CKD-EPI)AfAm >90 (>60 ml/min/1.73 sqM) Est GFR (CKD-EPI)NonAf 79 (>60 ml/min/1.73 sqM) Glucose 95 (74-99) mg/dL Calcium 9.2 (8.4-10.2) mg/dL Total Bilirubin 1.1 (0.2-1.3) mg/dL AST 32 (17-59) U/L ALT 28 (4-49) U/L Alkaline Phosphatase 79 (38-126) U/L Total Protein 6.5 (6.3-8.2) g/dL Albumin 4.1 (3.5-5.0) g/dL Disposition Clinical Impression: Hematuria, Retention of urine, unspecified Disposition: HOME SELF-CARE Condition: Stable Additional Instructions: Follow-up with Dr. Enciso on Saturday as scheduled. Return to the ER for any new or worsening symptoms. Is patient prescribed a controlled substance at d/c from ED?: No Referrals: Dewayne Woody MD [Primary Care Provider] - 1-2 days Howard Enciso MD [STAFF PHYSICIAN] - 1-2 days Time of Disposition: 16:30
[2024-01-04 15:37] LABS: Basophils # (A) 0.1 k/uL (0-0.2); Basophils % (A) 1 %; Eosinophils # (A) 0.2 k/uL (0-0.7); Eosinophils % (A) 3 %; HCT 43.6 % (39.0-53.0); HGB 14.2 gm/dL (13.0-17.5); Lymphocytes # (A) 1.6 k/uL (1.0-4.8); Lymphocytes % (A) 29 %; MCH 30.3 pg (25.0-35.0); MCHC 32.7 g/dL (31.0-37.0); MCV 92.7 fL (80.0-100.0); Mean Platelet Volume 7.9; Monocytes # (A) 0.5 k/uL (0-1.0); Monocytes % (A) 9 %; Neutrophils # (A) 3.1 k/uL (1.3-7.7); Neutrophils % (A) 56 %; Platelet Count 197 k/uL (150-450); RDW 13.2 % (11.5-15.5); WBC 5.4 k/uL (3.8-10.6)
[2024-01-04 15:45] LABS: ALT 28 U/L (4-49); AST 32 U/L (17-59); African American GFR (CKD) >90 (>60 ml/min/1.73 sqM); Albumin 4.1 g/dL (3.5-5.0); Alkaline Phosphatase 79 U/L (38-126); Anion Gap 6 mmol/L; Blood Urea Nitrogen 27 mg/dL (9-20); Calcium 9.2 mg/dL (8.4-10.2); Carbon Dioxide 24 mmol/L (22-30); Chloride 107 mmol/L (98-107); Glucose 95 mg/dL (74-99); Non-African American GFR(CKD) 79 (>60 ml/min/1.73 sqM); Potassium 4.2 mmol/L (3.5-5.1); Sodium 137 mmol/L (137-145); Total Bilirubin 1.1 mg/dL (0.2-1.3); Total Protein 6.5 g/dL (6.3-8.2)
[2024-01-04 17:23] VITALS: BP 130/76; PULSE 70; RESP 18
== END 2024-01-04 16:41 | disposition home or self-care (01) ==
LOC: EC 14:21
DX: R31.9 Hematuria, unspecified (principal); R33.9 Retention of urine, unspecified; Z87.891 Personal history of nicotine dependence
CPT/HCPCS: 36415; 51798; 80053; 85025; 99283

== ENCOUNTER → 2024-03-05 | Outpatient (CLI) | payer MEDICARE ==
[2024-03-05 10:29] LABS: African American GFR (CKD) >90 (>60 ml/min/1.73 sqM); Blood Urea Nitrogen 30 mg/dL (9-20); Non-African American GFR(CKD) 87 (>60 ml/min/1.73 sqM)
--- NOTE | 2024-03-05 12:29 | CT ---
CT urogram HISTORY: Renal cell carcinoma. COMPARISON: 12/10/2022. TECHNIQUE: Multiple axial images are obtained through the abdomen and pelvis before and after the une ventful administration nonionic IV contrast material. FINDINGS: Lung bases are clear. On the pre-IV contrast images, a nonobstructing 4.4 mm left renal calculus. Hydronephrosis and 2 larg e left renal calculi seen in the prior study have resolved in the interval. The gallbladder is normal and there is no distention or biliary ductal dilatation. There are no focal masses within the liver, pancreas, spleen or adrenal glands and there is no organo megaly. Scattered small hepatic cysts. Kidneys excrete contrast promptly and symmetrically and there is no solid renal mass, hydronephrosis or filling defect within the renal collecting systems, ureters or urinary bladder. The bowel loops are normal in caliber and there is no dilatation or obstruction. No inflammatory araujo ges are identified in the bowel wall or mesentery. There is no free intraperitoneal air or fluid. There is no pelvic mass, free fluid, abscess or adenopathy. The osseous structures are intact. IMPRESSION: 1. 4.4 nonobstructing left renal calcification. Previous large left renal calcifications and hydronep hrosis is resolved in the interval. 2. No solid renal mass or filling defect within the renal collecting systems or ureter.
--- NOTE | 2024-03-05 12:37 | CT ---
EXAMINATION TYPE: CT chest w con DATE OF EXAM: 03/05/2024 COMPARISON: CT chest dated 11/12/2022 and 11/14/2023 HISTORY: Renal cancer CT DLP: 3454 mGycm Automated exposure control for dose reduction was used. TECHNIQUE: CT scan of the chest is performed with IV Contrast, patient injected with 100 ml mL of Isovue 300. M IP Images are created on CT scanner and reviewed. 3D reconstructed images are created on an [employer] workstation and reviewed. FINDINGS: Stable 2 to 3 mm nodule in the right upper lobe. No new or suspicious lung mass or nodule is seen. There is no airspace consolidation or abnormal interstitial density. There is no pleural effusion or pneumothorax. There are stable 4 cm dilatation of the ascending thoracic aorta. There is no mediastinal, hilar or axillary adenopathy. Limited scanning through the upper abdomen reveals no gross abnormality. No Focal osseous lesions are seen. IMPRESSION: 1. Stable 3 mm nodule in the right upper lobe. 2. No acute cardiopulmonary disease 3. No evidence of metastatic disease.
== END | disposition home or self-care (01) ==
LOC: RADCTMAIN 09:45
PROVIDERS: ATTEND Urology
DX: R91.1 Solitary pulmonary nodule (principal); N28.89 Other specified disorders of kidney and ureter; C64.9 Malignant neoplasm of unspecified kidney, except renal pelvis
CPT/HCPCS: 82565; 84520; 71260; 74178; 36415; 74400; Q9967

== ENCOUNTER → 2024-10-27 | Outpatient (CLI) | payer MEDICARE ==
[2024-10-27 16:56] LABS: Appearance,Urine Clear (Clear); Bilirubin,Urine Negative (Negative); Blood,Urine Negative (Negative); Color,Urine Yellow (Yellow); Ketones,Urine Negative (Negative); Nitrite,Urine Negative (Negative); PH, Urine 6.5; Specific Gravity,Urine 1.011 (1.001-1.030); Urobilinogen,Urine 0.2 E.U./DL
[2024-10-27 17:54] LABS: Basophils # (A) 0.03 X 10*3/uL (0.00-0.10); Basophils % (A) 0.7 %; Eosinophils # (A) 0.16 X 10*3/uL (0.04-0.35); Eosinophils % (A) 3.8 %; HGB 14.7 g/dL (13.0-17.0); Lymphocytes # (A) 1.38 X 10*3/uL (0.90-5.00); Lymphocytes % (A) 32.7 %; MCH 30.3 pg (27.0-32.0); MCV 94.8 FL (80.0-97.0); Mean Platelet Volume 10.9 FL (9.5-12.2); Monocytes # (A) 0.58 X 10*3/uL (0.20-1.00); Monocytes % (A) 13.7 %; NRBC Per 100 WBC 0 X 10*3/uL (0.00-0.01); Neutrophils # (A) 2.06 X 10*3/uL (1.80-7.70); Neutrophils % (A) 48.9 %; Platelet Count 189 X 10*3/uL (140-440); RBC 4.85 X 10*6/uL (4.40-5.60); RDW 13.2 % (11.5-14.5); WBC 4.22 X 10*3/uL (4.50-10.00)
[2024-10-27 18:13] LABS: BUN/Creat Ratio 15.55 Ratio (12.00-20.00); Blood Urea Nitrogen 17.1 mg/dL (9.0-27.0); Calcium 9.3 mg/dL (8.7-10.3); Chloride 108 mmol/L (96-109); Glucose 87 mg/dL (70-110); Potassium 4.3 mmol/L (3.5-5.5); Sodium 141 mmol/L (135-145)
== END | disposition home or self-care (01) ==
LOC: LABWHC1 08:17
PROVIDERS: ATTEND Urology
DX: Z01.812 Encounter for preprocedural laboratory examination (principal); C67.9 Malignant neoplasm of bladder, unspecified
CPT/HCPCS: 36415; 80048; 81003; 85025; 87086

== ENCOUNTER 2024-11-04 06:07 | Day surgery (SDC) | payer MEDICARE ==
--- NOTE | 2024-11-03 11:45 | P.GSHP ---
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 He has been on BCG without benefit. He has been sent to [facility] evaluation and they talked about cystectomy which she declined. He recently had cystoscopy id entifying recurrent disease on the anterior bladder wall that appears superficial as well as some posterior wall redness. He comes for cystoscopy resection of tumor and retrograde pyelo Past Medical History Past Medical History: Coronary Artery Disease (CAD), Cancer, GERD/Reflux, Hyperlipidemia, Osteoarthritis (OA), Prostate Disorder Additional Past Medical History / Comment(s): hx kidney stone. bladder tumor has been treated and regrown. Aug 2024 + Covid. tumor to prostate which is enlarged. History of Any Multi-Drug Resistant Organisms: None Reported Past Surgical History: Heart Catheterization Additional Past Surgical History / Comment(s): carpal tunnel, cysto, Bx of bladder tumor. colonoscopy, Past Anesthesia/Blood Transfusion Reactions: No Reported Reaction Additional Past Anesthesia/Blood Transfusion Reaction / Comment(s): no blood transfusion Smoking Status: Former smoker - Past Family History Father Family Medical History: No Reported History Medications and Allergies Home Medications Medication Instructions Recorded Confirmed Type Aspirin 81 mg PO DAILY 04/04/23 11/02/24 History Atorvastatin [Lipitor] 40 mg PO HS 05/02/23 11/02/24 History Albuterol Inhaler [Ventolin Hfa 1 - 2 puff INHALATION DIRECTED 11/02/24 11/02/24 History Inhaler] PRN Alfuzosin HCl [Alfuzosin HCl ER] 10 mg PO BID 11/02/24 11/02/24 History Famotidine 40 mg PO DAILY 11/02/24 11/02/24 History Unk Multi Vitamin 1 tab PO DAILY 11/02/24 11/02/24 History Unk Vitamin C 1 tab PO DAILY 11/02/24 11/02/24 History Allergies Allergy/AdvReac Type Severity Reaction Status Date / Time No Known Allergies Allergy Verified 11/02/24 08:40 Surgical - Exam - General well developed, well nourished, no distress - Eyes normal ocular movement, no icteric - ENT no hearing loss, no congestion - Neck no masses, trachea midline - Respiratory normal respiratory effort, clear to auscultation - Abdomen Abdomen: soft, non tender, no guarding, no rigid, no rebound - Integumentary no rash, no abnormal pigmentation - Neurologic no disoriented, no combative - Psychiatric oriented to time, oriented to person, oriented to place, speech is normal, memory intact Assessment and Plan Assessment: Impression:: Recurrent superficial bladder cancer, noninvasive. BPH Recommendations: The patient will undergo resection of recurrent superficial bladder cancer and retrograde pyelograms. He has previously been seen at [facility] and declined cystectomy. He may and probably will need more intravesical chemotherapy.
[~2024-11-04 06:07] MED LIST changes: -HYDROmorphone 0.5 MG/0.5 ML SYRINGE IVP PRN; -LIDOCAINE 1% (10MG/ML) FOR IV START INTRADERMA PRN; -METOCLOPRAMIDE 5 MG/ML 2 ML VIAL IVP PRN; +Pre Op ABX Message 1 EACH MISC MISCELLANE ONE; -fentaNYL (PF) 50 MCG/ML 2 ML AMP IV PRN
[2024-11-04 06:44] VITALS: TEMP 98.3
[2024-11-04 06:54] LABS: Glucose,Whole Blood 89 mg/dL (70-110)
[2024-11-04] MEDS: LACTATED RINGERS 1,000 ML IV SCH (06:56)
[2024-11-04] MEDS: DEXAMETHASONE SOD PHOSPHATE 4 MG/ML 1 ML VIAL IV ONE (06:56)
[2024-11-04] MEDS: ONDANSETRON 4 MG/2 ML VIAL IVP ONE (06:56)
[2024-11-04] MEDS ORDERED: HYDROmorphone 0.5 MG/0.5 ML SYRINGE IVP PRN (07:00)
[2024-11-04] MEDS ORDERED: MIDAZOLAM 2 MG/2 ML VIAL IV PRN (07:00)
[2024-11-04] MEDS: IV FLUID CONTINUATION 1,000 ML IV ONE ×2 (07:03→08:55)
[2024-11-04] MEDS ORDERED: fentaNYL (PF) 50 MCG/ML 2 ML AMP ONE (07:21)
[2024-11-04] MEDS ORDERED: PROPOFOL 10 MG/ML 20 ML VIAL IV ONE (07:21)
[2024-11-04] MEDS ORDERED: LIDOCAINE 1% INJ 10MG/ML (20 ML MDV) ONE (07:21)
[2024-11-04] MEDS ORDERED: MIDAZOLAM 2 MG/2 ML VIAL ONE (07:21)
[2024-11-04] MEDS ORDERED: SUCCINYLCHOLINE CHLORIDE 200 MG/10 ML VIAL IV ONE (07:21)
[2024-11-04] MEDS ORDERED: ePHEDrine 50 MG/ML 1 ML VIAL ONE (07:21)
[2024-11-04] MEDS: IOPAMIDOL-370 100ML BTL MISCELLANE ONE (07:44)
--- NOTE | 2024-11-04 08:06 | FL ---
EXAMINATION TYPE: FL urography retrograde DATE OF EXAM: 11/04/2024 FLUOROSCOPY BILATERAL RETROGRADE PYELOGRAM, 55 SEC FLUORO, DAP .[id number] [facility], Workstation: [employer] Author HubALLISON, 11/04/2024 8:03 AM
--- NOTE | 2024-11-04 08:37 | P.OP ---
Date of Procedure: 11/04/24 Preoperative Diagnosis: Recurrent bladder cancer Postoperative Diagnosis: Same Procedure(s) Performed: TURBT (medium, greater than 2 cm), bilateral retrograde pyelograms Anesthesia: TALYAA Surgeon: Howard Enciso Estimated Blood Loss (ml): 0 Pathology: other (Bladder tumor) Condition: stable Disposition: PACU Indications for Procedure: The patient is 74. He has a history of high-grade noninvasive bladder cancer. He has been recurrent. He was referred to [facility] for further evaluation. They recommended a cystectomy but he declined. 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 He had a recent cystoscopy identified diffuse tumor in the anterior bladder wall. He comes for resection of this. Description of Procedure: Brought operating suite given a general anesthetic. Placed in lithotomy position with sterile prep and drape. Cystoscopy Foroblique lens and 21 Kisw[place]ili sheath identifies a normal anterior urethra. There is marked lateral lobe obstruction of the prostate. The bladder neck is inspected and is normal. The bladder was entered there is severe trabeculation. There is a small amount of tumor to the lateral aspect of the right orifice. There is tumor on the left bladder neck near the trigone. There is tumor in the anterior bladder wall. With a cone-tip catheter bilateral retrograde pyelograms were performed the ureter was of normal course and caliber without filling defect or obstruction I then introduced the resectoscope into the bladder. I resect the bladder tumor on the right posterior lateral bladder wall of the left bladder neck and the anterior bladder wall. The tumor size is greater than 2 cm probably up to 3 cm in total. Tumor sent to pathology. The areas of resection are cauterized thoroughly. At the end of the procedure there is no remaining tumor or active bleeding. The resectoscope was removed and an 18 Kisw[place]ili Gamble catheter was introduced with the live with clear urine return Impression recurrent bladder cancer rule out carcinoma in situ recommendations: pending biopsy report
[2024-11-04 09:08] VITALS: RESP 16
[2024-11-04 09:22] VITALS: BP 128/81; PULSE 75
== END 2024-11-04 09:48 | disposition home or self-care (01) ==
LOC: OR 06:07
PROVIDERS: ATTEND Urology
DX: D09.0 Carcinoma in situ of bladder (principal); I25.10 Atherosclerotic heart disease of native coronary artery without angina pectoris; E78.5 Hyperlipidemia, unspecified; N40.0 Benign prostatic hyperplasia without lower urinary tract symptoms; Z87.442 Personal history of urinary calculi; Z87.891 Personal history of nicotine dependence; Z85.51 Personal history of malignant neoplasm of bladder
CPT/HCPCS: 88307; 74420; 52235; C1758; J2250; J0330; J1100; J2405; J2003; J3010; J2704; Q9967